=== PATIENT | male | born 1985 | race Caucasian/White ===

== ENCOUNTER 2022-06-14 21:35 | Emergency (ER) | payer SELFPAY ==
[2022-06-14] MEDS ORDERED: metroNIDAZOLE 250 MG Tab PO STA (21:41)
== END 2022-06-14 22:05 | disposition home or self-care (01) ==
LOC: MW.ED 21:35
DX: A59.9 Trichomoniasis, unspecified (principal)
CPT/HCPCS: 99283; A9270